=== PATIENT | male | born 1980 | race Caucasian/White ===

== ENCOUNTER 2017-11-09 08:10 | Emergency (ER) | payer OTHER ==
[~2017-11-09] VITALS: Ht 180.3 cm; Wt 90.7 kg
[~2017-11-09 08:10] MED LIST: ACTICIN 5% CREA60 G1 TOP; ALBUTEROL INHAL17 GM IH; NAPROSYN375 MG PO; NOHOMEMEDICATIONS; NORCO 5-325 TA1 EACH PO; PREDNISONE 20 M20 MG PO; TRIAMCINOLONE A80 G2 TOP; ZPAK PO
[2017-11-09 08:16] VITALS: BP 148/96
[2017-11-09] MEDS ORDERED: KEFLEX500 M1 PO (08:25)
== END 2017-11-09 08:32 | disposition home or self-care (01) ==
LOC: M.ERS 08:10
DX: S01.511A Laceration without foreign body of lip, initial encounter (principal); X58.XXXA Exposure to other specified factors, initial encounter; Y93.89 Activity, other specified; Y92.89 Other specified places as the place of occurrence of the external cause; Y99.8 Other external cause status

== ENCOUNTER 2019-11-20 09:11 | Emergency (ER) | payer BC ==
[~2019-11-20] VITALS: Ht 182.9 cm; Wt 86.2 kg
[~2019-11-20 09:11] MED LIST changes: +KEFLEX500 M1 PO
[2019-11-20] MEDS ORDERED: AZITHROMYCIN 2250 MG PO (10:05)
[2019-11-20] MEDS ORDERED: MEDROLDOSEPACK PO (10:05)
[2019-11-20 10:38] VITALS: BP 139/94
== END 2019-11-20 10:38 | disposition home or self-care (01) ==
LOC: M.ERS 09:11
DX: J40 Bronchitis, not specified as acute or chronic (principal); J04.0 Acute laryngitis; J02.9 Acute pharyngitis, unspecified

== ENCOUNTER 2021-07-10 21:21 | Emergency (ER) | payer BC ==
[~2021-07-10] VITALS: Ht 172.7 cm; Wt 77.1 kg
[~2021-07-10 21:21] MED LIST changes: +AZITHROMYCIN 2250 MG PO; +MEDROLDOSEPACK PO
[2021-07-10] MEDS ORDERED: PANTOPRAZOLE (21:33)
[2021-07-10] MEDS ORDERED: CEPHALEXIN500 MG PO (22:24)
[2021-07-10 22:29] VITALS: BP 148/94
== END 2021-07-10 22:30 | disposition home or self-care (01) ==
LOC: M.ERS 21:21
DX: S01.511A Laceration without foreign body of lip, initial encounter (principal); Y04.0XXA Assault by unarmed brawl or fight, initial encounter; Y93.89 Activity, other specified; Y92.89 Other specified places as the place of occurrence of the external cause; Y99.8 Other external cause status